=== PATIENT | male | born 2000 | race Caucasian/White ===

== ENCOUNTER 2023-09-19 10:28 | Emergency (ER) | payer SELFPAY ==
[2023-09-19] MEDS ORDERED: FLUORESCEIN NA 1 EA STRIP OD ONE (12:02)
[2023-09-19] MEDS ORDERED: TETRACAINE 0.5% HCL 0.6ML DROPPER.BOTTLE OD ONE (12:03)
[2023-09-19 14:23] VITALS: BP 111/60; PULSE 81; RESP 18; TEMP 98.1; BMI 23.5
== END 2023-09-19 12:16 | disposition home or self-care (01) ==
LOC: JERFT 10:28
DX: S05.01XA Injury of conjunctiva and corneal abrasion without foreign body, right eye, initial encounter (principal); W45.8XXA Other foreign body or object entering through skin, initial encounter; Y92.9 Unspecified place or not applicable
CPT/HCPCS: 99283-25